=== PATIENT | female | born 1945 | race Caucasian/White ===

== ENCOUNTER 2019-07-16 11:37 | Outpatient (CLI) | payer MEDICARE, BC, SELFPAY ==
--- NOTE | 2019-07-16 11:58 | XR_ITS ---
WS: [id number] PELVIS: AP VIEW SUBMITTED HISTORY: inflammatory arthritis COMPARISON: None available. Mild enthesopathy from the iliac crest. Prior L5-S1 fusion with bone grafting. SI joints are very min imally narrowed. No fusion or sclerosis or widening. No erosions. Mild narrowing of the hip joints. XR/XR pelvis 1-2V* [id number] IMPRESSION: 1. Mild enthesopathy from the iliac crest. 2. Minimal degenerative changes at the SI joints with no ankylosis or erosion.
--- NOTE | 2019-07-16 11:58 | XR_ITS ---
WS: [id number] RIGHT FOOT: 3 VIEW(S) TECHNIQUE: AP, oblique and lateral. HISTORY: inflammatory arthritis COMPARISON: None available. No acute fracture or dislocation. Normal tarsal/metatarsal alignment. Interphalangeal joint space narrowing and mild osteopenia. Early erosion suspected at the fifth metat arsal head. XR/XR foot RT min 3V* [id number] IMPRESSION: Osteopenia with early erosion suspected at the fifth metatarsal head.
--- NOTE | 2019-07-16 11:58 | XR_ITS ---
WS: [id number] LEFT FOOT: 3 VIEW(S) TECHNIQUE: AP, oblique and lateral. HISTORY: inflammatory arthritis COMPARISON: None available. No acute fracture or dislocation. Normal tarsal/metatarsal alignment. Bones are osteopenic. Increasing lucency and possible erosion involving the fifth metatarsal head. XR/XR foot LT min 3V* [id number] IMPRESSION: Mild osteopenia and early erosions suspected at the fifth metatarsal head.
--- NOTE | 2019-07-16 11:58 | XR_ITS ---
WS: [id number] CHEST 2 VIEWS HISTORY: inflammatory arthritis COMPARISON: None available. Lungs: Clear with no abnormality. No pleural effusion or pneumothorax. Cardiac size: Normal. Mediastinum/Aorta: Mild atherosclerosis aorta. Bones: Prior anterior cervical fusion. Mild degenerative changes at the AC joints. Surgical clips in the RIGHT neck. XR/XR chest 2V* [id number] IMPRESSION: Mild atherosclerosis aorta. No pulmonary nodules or bullous lung disease.
--- NOTE | 2019-07-16 11:58 | XR_ITS ---
WS: [id number] LEFT HAND: 3 VIEW(S) TECHNIQUE: PA, oblique and lateral. HISTORY: inflammatory arthritis COMPARISON: None available. Moderate narrowing of the interphalangeal joint spaces. Most significant involving the proximal and d istal interphalangeal joint spaces of the second finger. No definite periostitis. There are small ero sions most significant involving the first and second IP articular surfaces. Mild narrowing of the fi rst carpometacarpal joint. XR/XR hand LT min 3V* [id number] IMPRESSION: 1. 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 2. Additional findings of osteoarthritis. 3. No erosions at the metacarpal heads.
--- NOTE | 2019-07-16 11:58 | XR_ITS ---
WS: [id number] RIGHT HAND: 3 VIEW(S) TECHNIQUE: PA, oblique and lateral. HISTORY: inflammatory arthritis COMPARISON: None available. Moderate interphalangeal joint space narrowing. No osteopenia. Moderate narrowing of the first carpom etacarpal joint. No erosions at the metacarpal heads. XR/XR hand RT min 3V* [id number] IMPRESSION: Moderate osteoarthritis involving the RIGHT hand and wrist.
== END 2019-07-16 11:38 | disposition home or self-care (01) ==
LOC: RADWPI 11:44
PROVIDERS: PCP Family Medicine; Visit Provider Internal Medicine Rheumatology
DX: Z79.899 Other long term (current) drug therapy (principal); Z11.59 Encounter for screening for other viral diseases; Z72.89 Other problems related to lifestyle
CPT/HCPCS: 36415; 71046; 72170; 73130; 73630; 80076; 82306; 82565; 84439; 84443; 84550; 85025; 85651; 86140; 86431; 86480; 86704; 86803; 87340

== ENCOUNTER → 2019-09-06 10:26 | Outpatient (BNVA) | payer MEDICARE, BC, SELFPAY | PROVIDERS: PCP Family Medicine; Visit Provider Internal Medicine Rheumatology | DX: Z79.899 Other long term (current) drug therapy (principal); M05.9 Rheumatoid arthritis with rheumatoid factor, unspecified | CPT/HCPCS: 36415; 80076; 82565; 85025; 85651; 86140 ==

== ENCOUNTER → 2019-10-09 14:01 | Outpatient (BNVA) | payer MEDICARE, BC, SELFPAY | PROVIDERS: PCP Family Medicine; Visit Provider Internal Medicine Rheumatology | DX: M05.79 Rheumatoid arthritis with rheumatoid factor of multiple sites without organ or systems involvement; M35.09 Sjogren syndrome with other organ involvement; M15.4 Erosive (osteo)arthritis; C44 Other and unspecified malignant neoplasm of skin; Z71.89 Other specified counseling; Z79.899 Other long term (current) drug therapy | CPT/HCPCS: 99214 ==

== ENCOUNTER → 2019-11-12 10:58 | Outpatient (BNVA) | payer MEDICARE, BC, SELFPAY | PROVIDERS: PCP Family Medicine; Visit Provider Internal Medicine Rheumatology | DX: Z79.899 Other long term (current) drug therapy (principal) | CPT/HCPCS: 36415; 80076; 82306; 82565; 85025; 85651; 86140 ==

== ENCOUNTER → 2020-02-06 09:10 | Outpatient (BNVA) | payer MEDICARE, BC, SELFPAY | PROVIDERS: PCP Family Medicine; Visit Provider Internal Medicine Rheumatology | DX: M05.79 Rheumatoid arthritis with rheumatoid factor of multiple sites without organ or systems involvement (principal); M35.09 Sjogren syndrome with other organ involvement; M15.4 Erosive (osteo)arthritis; Z79.52 Long term (current) use of systemic steroids; Z79.899 Other long term (current) drug therapy; R76.8 Other specified abnormal immunological findings in serum | CPT/HCPCS: 36415; 80076; 82565; 85025; 85651; 86140; 99214 ==

== ENCOUNTER → 2020-06-25 13:30 | Outpatient (BNVA) | payer MEDICARE, BC, SELFPAY | PROVIDERS: PCP Family Medicine; Visit Provider Internal Medicine Rheumatology | DX: M35.09 Sjogren syndrome with other organ involvement (principal); M05.79 Rheumatoid arthritis with rheumatoid factor of multiple sites without organ or systems involvement; M15.4 Erosive (osteo)arthritis; Z79.899 Other long term (current) drug therapy | CPT/HCPCS: 99214 ==

== ENCOUNTER → 2020-10-01 13:37 | Outpatient (BNVA) | payer MEDICARE, BC, SELFPAY | PROVIDERS: PCP Family Medicine; Visit Provider Internal Medicine Rheumatology | DX: M35.09 Sjogren syndrome with other organ involvement (principal); M05.79 Rheumatoid arthritis with rheumatoid factor of multiple sites without organ or systems involvement; M15.4 Erosive (osteo)arthritis; Z79.899 Other long term (current) drug therapy; Z92.3 Personal history of irradiation; Z98.890 Other specified postprocedural states; Z71.89 Other specified counseling | CPT/HCPCS: 99214 ==

== ENCOUNTER → 2021-01-28 13:08 | Outpatient (BNVA) | payer MEDICARE, BC, SELFPAY | PROVIDERS: PCP Family Medicine; Visit Provider Internal Medicine Rheumatology | DX: M35.09 Sjogren syndrome with other organ involvement (principal); M05.79 Rheumatoid arthritis with rheumatoid factor of multiple sites without organ or systems involvement; Z79.899 Other long term (current) drug therapy; M15.4 Erosive (osteo)arthritis; Z85.828 Personal history of other malignant neoplasm of skin; Z85.858 Personal history of malignant neoplasm of other endocrine glands; Z92.3 Personal history of irradiation; Z71.89 Other specified counseling | CPT/HCPCS: 99214 ==

== ENCOUNTER → 2021-05-25 14:05 | Outpatient (BNVA) | payer MEDICARE, BC, SELFPAY | PROVIDERS: PCP Family Medicine; Visit Provider Internal Medicine Rheumatology | DX: M35.09 Sjogren syndrome with other organ involvement (principal); M05.79 Rheumatoid arthritis with rheumatoid factor of multiple sites without organ or systems involvement; M15.4 Erosive (osteo)arthritis; Z79.899 Other long term (current) drug therapy; Z85.858 Personal history of malignant neoplasm of other endocrine glands; Z85.828 Personal history of other malignant neoplasm of skin; Z92.3 Personal history of irradiation; Z71.89 Other specified counseling | CPT/HCPCS: 99214 ==

== ENCOUNTER 2021-08-19 11:02 | Outpatient (CLI) | payer MEDICARE, BC, SELFPAY ==
[2021-08-19 11:29] LABS: Basophils % 0.4 %; Eosinophils % 0.2 %; Hematocrit 34.5 % (37.0-47.0); Hemoglobin 11.3 g/dL (11.5-15.3); Lymphocytes # 0.6 10^3/uL (0.8-4.8); Lymphocytes % 7.3 %; Mean Corpuscular HGB Conc 32.8 g/dL (30.0-36.0); Mean Corpuscular Hemoglobin 32.1 pg (28.0-34.0); Mean Platelet Volume 9.6 fL (7.4-10.4); Monocytes # 0.2 10^3/uL (0.2-0.9); Monocytes % 2.1 %; Neutrophils % 89.4 %; Nucleated Red Blood Cells % 0 %; Platelet Count 275 10^3/cmm (130-400); Red Blood Count 3.52 10^6/uL (4.1-5.3); Red Cell Distribution Width 14.7 % (12.1-15.1); White Blood Count 8.4 10^3/uL (4.0-10.0)
[2021-08-19 11:56] LABS: Alanine Aminotransferase 21 U/L (0-33); Albumin Level 3.9 g/dL (3.5-5.2); Alkaline Phosphatase 102 IU/L (35-105); Aspartate Amino Transferase 19 U/L (0-32); C Reactive Protein 112.9 mg/L (0.0-4.9); Total Bilirubin 0.3 mg/dL (0.15-1.2); Total Protein 6.9 g/dL (6.6-8.7)
== END 2021-08-19 11:03 | disposition home or self-care (01) ==
PROVIDERS: PCP Family Medicine; Visit Provider Internal Medicine Rheumatology
DX: M35.09 Sjogren syndrome with other organ involvement (principal); M05.79 Rheumatoid arthritis with rheumatoid factor of multiple sites without organ or systems involvement; Z79.899 Other long term (current) drug therapy; Z92.3 Personal history of irradiation; Z85.858 Personal history of malignant neoplasm of other endocrine glands; Z85.828 Personal history of other malignant neoplasm of skin; Z71.89 Other specified counseling
CPT/HCPCS: 36415; 80076; 82565; 85025; 86140; 99214

== ENCOUNTER → 2021-11-26 14:04 | Outpatient (BNVA) | payer MEDICARE, BC, SELFPAY | PROVIDERS: PCP Family Medicine; Visit Provider Internal Medicine Rheumatology | DX: M05.79 Rheumatoid arthritis with rheumatoid factor of multiple sites without organ or systems involvement (principal); Z79.899 Other long term (current) drug therapy; M15.4 Erosive (osteo)arthritis; Z71.89 Other specified counseling; M35.09 Sjogren syndrome with other organ involvement; Z92.3 Personal history of irradiation; Z85.858 Personal history of malignant neoplasm of other endocrine glands; Z85.828 Personal history of other malignant neoplasm of skin | CPT/HCPCS: 80076; 82565; 85025; 86140; 99214 ==

== ENCOUNTER 2021-12-21 10:24 | Outpatient (CLI) | payer MEDICARE, BC, SELFPAY ==
[2021-12-21 11:13] LABS: Alanine Aminotransferase 14 U/L (0-33); Albumin Level 3.7 g/dL (3.5-5.2); Alkaline Phosphatase 92 U/L (35-105); Aspartate Amino Transferase 21 U/L (0-32); Globulin 2.7 g/dL (1.3-4.6); Total Bilirubin 0.3 mg/dL (0.15-1.2); Total Protein 6.4 g/dL (6.6-8.7)
== END 2021-12-21 10:25 | disposition home or self-care (01) ==
LOC: LAB 10:27
PROVIDERS: PCP Family Medicine; Visit Provider Internal Medicine Rheumatology
DX: R79.89 Other specified abnormal findings of blood chemistry (principal)
CPT/HCPCS: 36415; 80076

== ENCOUNTER → 2022-04-05 13:00 | Outpatient (BNVA) | payer MEDICARE, BC, SELFPAY | PROVIDERS: PCP Family Medicine; Visit Provider Internal Medicine Rheumatology | DX: M05.79 Rheumatoid arthritis with rheumatoid factor of multiple sites without organ or systems involvement (principal); M15.4 Erosive (osteo)arthritis; Z79.899 Other long term (current) drug therapy; Z71.89 Other specified counseling; M35.09 Sjogren syndrome with other organ involvement; M35.00 Sjogren syndrome, unspecified; Z92.3 Personal history of irradiation; Z85.858 Personal history of malignant neoplasm of other endocrine glands; Z85.828 Personal history of other malignant neoplasm of skin | CPT/HCPCS: 36415; 80076; 82306; 82565; 84439; 84443; 85025; 86140; 99214 ==